=== PATIENT | male | born 1940 | race Caucasian/White ===

== ENCOUNTER 2021-04-29 12:31 | Outpatient (CLI) | payer MEDICARE, BC | END 2021-04-29 12:32 | disposition home or self-care (01) | LOC: TBSIIMAG 12:31 | PROVIDERS: ATTEND Neurological Surgery | DX: M47.26 Other spondylosis with radiculopathy, lumbar region (principal) | CPT/HCPCS: 72148 ==

== ENCOUNTER 2021-05-14 08:59 | Outpatient (CLI) | payer MEDICARE, BC ==
[2021-05-14] MEDS ORDERED: Iopamidol-370 76% 500 ML 1 ML ONE (12:38)
== END 2021-05-14 09:00 | disposition home or self-care (01) ==
LOC: BICCT 08:59
PROVIDERS: ATTEND Neurological Surgery
DX: N28.9 Disorder of kidney and ureter, unspecified (principal); M25.551 Pain in right hip; N28.1 Cyst of kidney, acquired
CPT/HCPCS: 74170; 82565; Q9967

== ENCOUNTER 2021-05-28 07:54 | Outpatient (CLI) | payer MEDICARE, BC ==
[2021-05-28 16:41] LABS: SARS-CoV-2 PCR by NAA Not Detected (NotDetected)
== END 2021-05-28 07:55 | disposition home or self-care (01) ==
LOC: LABBT 07:54
PROVIDERS: ATTEND Neurological Surgery
DX: Z01.812 Encounter for preprocedural laboratory examination (principal); M54.16 Radiculopathy, lumbar region; Z20.822 Contact with and (suspected) exposure to COVID-19
CPT/HCPCS: U0003; U0005